=== PATIENT | male | born 1995 | race Two or more races ===

== ENCOUNTER 2024-03-14 12:34 | Emergency (ER) | payer SELFPAY ==
[~2024-03-14] VITALS: Ht 182.9 cm; Wt 95.5 kg
[2024-03-14] MEDS: SODIUM CHLORIDE 0.9% 1,000 ML IV ONE (13:00)
[2024-03-14 13:17] LABS: Basophils # (auto) 0 10 ^3/uL (0-0.2); Basophils % (auto) 0.3 % (0.0-2.0); Eosinophils # (auto) 0 10 ^3/uL (0-0.8); Eosinophils % (auto) 0.3 % (0.0-7.0); Hematocrit 47.7 % (41.0-53.0); Hemoglobin 16.2 g/dL (13.5-17.5); Lymphocytes # (auto) 1.4 10 ^3/uL (0.4-5.4); Lymphocytes % (auto) 11.1 % (10.0-50.0); Mean Corpuscular Hemoglobin 30.3 pg (28.0-32.0); Mean Corpuscular Volume 89.3 fL (80.0-100.0); Monocytes # (auto) 0.8 10 ^3/uL (0-1.3); Monocytes % (auto) 6.5 % (0.0-12.0); Neutrophils # (auto) 10.6 10 ^3/uL (1.6-8.6); Neutrophils % (auto) 81.8 % (37.0-80.0); Nucleated Red Blood Cells % 0.1 %; Red Blood Cells 5.34 10^6/uL (4.5-5.90); Red Cell Distribution Width 12.7 % (11.8-14.3); White Blood Cell 12.9 10^3/uL (4.4-10.8)
[2024-03-14 13:21] VITALS: TEMP 97.5
[2024-03-14 13:27] LABS: Chloride 103 mmol/L (98-107); Potassium 4.3 mmol/L (3.5-5.1); Sodium 136 mmol/L (136-145)
[2024-03-14 13:28] LABS: Anion Gap 9 (5-15); Carbon Dioxide 24 mmol/L (20-30)
[2024-03-14 13:29] LABS: Calcium 10.1 mg/dL (8.7-10.4)
[2024-03-14 13:30] VITALS: PULSE 85; RESP 14; O2SAT 95
[2024-03-14 13:34] LABS: BUN/Creatinine Ratio 12.9 (10.0-20.0); Blood Urea Nitrogen 25 mg/dL (9-23); Glucose 109 mg/dL (74-106)
[2024-03-14 14:54] VITALS: BP 119/53; PULSE 84; RESP 14; O2SAT 96
== END 2024-03-14 15:05 | disposition home or self-care (01) ==
LOC: EDBD 12:34 → ER 12:34
DX: T67.5XXA Heat exhaustion, unspecified, initial encounter (principal); X58.XXXA Exposure to other specified factors, initial encounter; Y93.89 Activity, other specified; Y92.89 Other specified places as the place of occurrence of the external cause; Y99.8 Other external cause status
CPT/HCPCS: 36415; 80048; 85025; 96360; 96361; 99283; J7030